=== PATIENT | female | born 1960 | race Caucasian/White ===

== ENCOUNTER → 2024-05-01 13:36 | Outpatient (REF) | payer OTHER, SELFPAY | LOC: WDC 13:36 | PROVIDERS: ATTENDING PHYSICIAN Obstetrics & Gynecology Gynecology | DX: Z12.31 Encounter for screening mammogram for malignant neoplasm of breast (principal) | CPT/HCPCS: 77063; 77067 ==

== ENCOUNTER 2024-06-08 09:14 | Emergency (ER) | payer OTHER, SELFPAY ==
[2024-06-08 09:18] VITALS: BP 135/104
--- NOTE | 2024-06-08 09:22 | ED.GENMED ---
History of Present Illness
General
Chief Complaint: Chest Pain
Time Seen by Provider: 06/08/24 09:22
History of Present Illness
History of Present Illness:
HPI: Past 2 nights, woke w/ CP assoc w/ nausea. BP has been elevated. Currently has an achy pain. Feels weak. No OCHOA. Occasional LE cramping. Is also concerned about her blood sugar as she was told that she was prediabetic and has not eaten
anything yet today.
EXAM:
GENERAL: Well appearing in no distress
HEENT: Moist oral mucosa
CARDIOVASCULAR: No murmurs, normal heart rate, regular rhythm, No chest wall tenderness
PULMONARY: No respiratory distress, breath sounds are clear and equal
ABDOMEN: Soft with no peritoneal signs, no tenderness
NEUROLOGIC: Excellent strength all extremities, no coordination deficits
PSYCHIATRIC: Appropriate mental status, normal insight and judgement
EXTREMITIES: Nontender, no edema, moves all extremities equally
SKIN: No rash, no lesions
TIME OF INITIAL ENCOUNTER: 10 AM
NUMBER AND COMPLEXITY OF PROBLEMS ADDRESSED AT THE ENCOUNTER
� Chronic conditions affecting care: Anxiety, depression, asthma
� Acute Exacerbation and/or Progression of Chronic Illness:
� Differential Diagnosis includes: ACS, highly doubt PE as patient is already on Eliquis and has not missed doses and vital signs are not consistent with PE
AMOUNT AND/OR COMPLEXITY OF DATA TO BE REVIEWED AND ANALYZED
� I performed an independent evaluation of and my interpretation is:
EKG: Sinus 67, no acute ST abnormality
CT:
X-rays: Chest x-ray shows hyperaerated lungs but no acute abnormality
Laboratory Studies: CBC normal, chemistries are unremarkable, troponin less than 0.012
Other:
� Review of other/old records: The patient had a nuclear stress test on 03/01/[address] Girard that showed no EKG or nuclear perfusion evidence of ischemia and was felt to be a low risk study, systolic function was normal
� Clinical information was obtained by an independent historian: None needed
� Prescriptions/Medications Considered but not given: Considered NSAIDs however the patient is on Eliquis
� Further testing considered but not performed: Consider CTA however the patient's vital signs are not consistent with PE and the patient is already on Eliquis on reassessment at 10:45 AM, the patient appears
RISK OF COMPLICATIONS AND/OR MORBIDITY OR MORTALITY OF PATIENT MANAGEMENT
� Social determinants of health affecting care: Lives at home
� Discussion with other providers:
� Escalation of care including admission/observation vs risk of discharge considered: The patient has had chest discomfort which is somewhat pleuritic in nature over the last couple of days. EKG and troponin unremarkable. She
had an unremarkable nuclear stress test February 2023. She appears very comfortable on exam. No further issues on reassessment at 10:40 AM.
Phy Exam
Physical Exam
Physical Exam:
See HPI
Scores
Heart Score for Chest Pain Patients
STEMI patient?: Not applicable
Course
Orders/Labs/Results
Orders:
Orders
06/08/24 09:20
ECG [Electrocardiogram (*1)] Urgent
Reason for Study: Chest Pain
EKG- Treatment ONCE
06/08/24 09:38
Basic Metabolic Panel Urgent
Complete Blood Count/With Diff Urgent
Troponin I Urgent
06/08/24 09:48
CR Chest - 2 Views Urgent
Comment:
Reason For Exam: cp
Abnormal Lab Results
06/08/24
09:38
MCH 31.4 H pg
(27.0-31.0)
MPV 11.7 H fL
(7.4-10.4)
BUN 19 H mg/dl
(7-17)
Glucose 106 H mg/dl
(70-99)
06/08/24 09:38
06/08/24 09:38
Vital Signs
Initial and Last Documented VS:
Initial Vital Signs
Temp Pulse Resp BP Pulse Ox
97.8 F 78 18 135/104 98
06/08/24 09:18 06/08/24 09:18 06/08/24 09:18 06/08/24 09:18 06/08/24 09:18
Last Documented Vital Signs
Temp Pulse Resp BP Pulse Ox
97.8 F 67 18 144/77 100
06/08/24 09:18 06/08/24 10:00 06/08/24 09:18 06/08/24 10:00 06/08/24 10:00
*Critical Care Note
Total Time (30-74mins, 75-104mins- exclusive of procedures): Not Applicable
ED Attending Note
-
Portions of this chart may have been created with voice recognition software.� Occasional wrong word or��sound alike� substitutions may have occurred due to the inherent limitations of voice recognition software.
Discharge Plan
Departure
Patient Disposition: Home (Routine Discharge)
Date of Disposition: 06/08/24
Time of Disposition: 10:43
Patient with high blood pressure during this ER visit?: Yes
Discharge Problem:
Chest pain
Instructions: Acid Reflux and GERD in Adults (DC), Chest Pain CBC Follow Up
Prescriptions:
No Action
cetirizine [Zyrtec] 10 MG tablet
10 mg PO DAILY
montelukast 10 MG tablet
10 mg PO DAILY
escitalopram oxalate [Lexapro] 10 MG tablet
10 mg PO DAILY
ascorbic acid-bioflavonoids 1 TAB tablet
1 tab PO DAILY
Benefiber
0.5 t PO BID
Patient Comments:
1/2 tablespoon
Citracal Plus D3
2 cap PO BID
Multivitamin (Adult 50 Plus)
1 tab PO DAILY
Ventolin Hfa
2 puff inhalation PRN PRN (Reason: asthma symptoms)
Patient Comments:
Takes 1 - 2puffs as needed
Dulera 200 mcg/5 mcg Inhaler
2 puff inhalation BID
levofloxacin 500 MG tablet
500 mg PO DAILY Qty: 6 0RF
prednisone 50 MG tablet
50 mg PO Daily Qty: 2 0RF
Referrals:
Burt Mar MD [Active] - Follow up in 2-3 days
Reyes White MD [Family Provider] -
Activity Restrictions/Additional Instructions:
The cause of your symptoms is unclear. Your blood work is unremarkable including cardiac blood work. I recommend that you follow-up with your metrology engineer for reassessment. Continue your medications including your Eliquis.
Interventions
Interventions:
*Risk Screen - Suicide Last Done: 06/08/24 09:18
*General Assessment Last Done: 06/08/24 09:18
*Neglect/Abuse Screening Last Done: 06/08/24 09:18
ED- Fall Risk Assessment Last Done: 06/08/24 09:30
*ED COVID-19 Vaccine History Last Done: 06/08/24 09:18
ED- Cardiac Assessment Last Done: 06/08/24 09:30
Discharge Date and Time
Print Language: CZECH
[2024-06-08 09:30] VITALS: BP 169/95
[2024-06-08 09:52] LABS: % Basophils 0.8 % (0-2); % Immature Granulocytes 0.2 % (0-0.5); % Lymphocytes 23.4 % (20.5-51.1); % Monocytes 5.7 % (1.7-9.3); % Neutrophils 68.9 % (42.2-75.2); Absolute Eosinophils 0.1 10^3/uL (0-0.7); Absolute Lymphocytes 1.2 10^3/uL (1.2-3.4); Absolute Monocytes 0.3 10^3/uL (0.1-0.6); Absolute Neutrophils 3.5 10^3/uL (1.4-6.5); Hematocrit 40.9 % (37.0-47.0); Mean Corp Hgb Conc. 34.2 g/dL (33.0-37.0); Mean Corpuscular Hgb 31.4 pg (27.0-31.0); Mean Corpuscular Volume 91.7 fL (81.0-99.0); Mean Platelet Volume 11.7 fL (7.4-10.4); Nucleated Red Blood Cells % 0 %; Platelet Count 217 10^3/uL (130-400); Red Blood Cell Count 4.46 10^6/uL (4.20-5.40); Red Cell Dist. Width 12.9 % (11.5-14.5); White Blood Cell Count 5.1 10^3/uL (4.8-10.8)
[2024-06-08 10:00] VITALS: BP 144/77
[2024-06-08 10:06] LABS: Blood Urea Nitrogen 19 mg/dl (7-17); Calcium 9.7 mg/dl (8.4-10.2); Carbon Dioxide 28 mmol/L (22-30); Chloride 104 mmol/L (98-107); Glucose 106 mg/dl (70-99); Potassium 4.7 mmol/L (3.5-5.1); Sodium 142 mmol/L (135-145); eGFR > 60.00
[2024-06-08 10:18] LABS: Troponin I < 0.012 ng/ml
== END 2024-06-08 10:58 | disposition home or self-care (01) ==
LOC: EMR 09:14
PROVIDERS: EMERGENCY PHYSICIAN Emergency Medicine; FAMILY PHYSICIAN Family Medicine
DX: R07.89 Other chest pain (principal); I48.91 Unspecified atrial fibrillation
CPT/HCPCS: 99283; 71046; 80048; 84484; 85025; 93005

== ENCOUNTER → 2025-05-02 10:42 | Outpatient (REF) | payer MEDICARE, OTHER, SELFPAY | LOC: WDC 10:42 | PROVIDERS: ATTENDING PHYSICIAN Obstetrics & Gynecology Gynecology; FAMILY PHYSICIAN Family Medicine | DX: M81.0 Age-related osteoporosis without current pathological fracture (principal); Z13.820 Encounter for screening for osteoporosis; Z12.31 Encounter for screening mammogram for malignant neoplasm of breast | CPT/HCPCS: 77063; 77067; 77080 ==